=== PATIENT | female | born 1955 | race Caucasian/White ===

== ENCOUNTER 2018-03-01 19:01 | Emergency (ER) | payer OTHER ==
[2018-03-01] MEDS ORDERED: HYDROCODONE/APAP 5/325 MG TAB ONE (20:01)
--- NOTE | 2018-03-01 20:13 | RAD REPORT ---
EXAM DESCRIPTION: RAD - Ankle Left 3 View - 03/01/2018 7:54 pm CLINICAL HISTORY: Ankle pain, twisting injury COMPARISON: None. FINDINGS: Distal tibia is intact. There is an oblique fracture through the distal fibula with no dis traction or angulation deformity. No joint effusion seen. No joint space narrowing. Edema changes see n in the lateral aspect of the leg and ankle. No plantar spur. No foreign body. IMPRESSION: Distal left fibula fracture with no distraction or angulation deformity.
--- NOTE | 2018-03-01 20:15 | RAD REPORT ---
EXAM DESCRIPTION: RAD - Tib Fib Left - 03/01/2018 7:54 pm CLINICAL HISTORY: Leg pain, twisting injury COMPARISON: None. FINDINGS: No tibia fracture is identifiable. No fibula fracture is visible on this examination. The oblique view from the left ankle examination does show the nondisplaced, nonangulated distal fibula f racture. There is no dislocation or periosteal reaction noted. Contusion or edema changes are seen in the soft tissues of the lateral left leg and ankle. Partially imaged knee joint shows no suspicious finding. No foreign body in the soft tissues. IMPRESSION: No acute left tibia or fibula finding identifiable on this study. Separately reported an kle examination does demonstrate distal fibula fracture.
--- NOTE | 2018-03-01 20:20 | EDPHYS ---
Physician Documentation [facility] Name: Patricia Carlisle Age: 62 yrs Sex: Female : 1955 Arrival Date: 03/01/2018 Time: 19:05 Bed 13 Private MD: out of town, doctor ED Physician Jose Guardado HPI: 03/01 19:33 This 62 yrs old Female presents to ER via Wheelchair with complaints of Ankle gurmeet Injury. 19:33 The patient presents with decreased range of motion, an injury, pain, tenderness. The gurmeet complaints affect the left ankle, lateral aspect of left calf, left lateral ankle, left Achilles, left medial ankle and anterior aspect of left ankle. Onset: The symptoms/episode began/occurred just prior to arrival. Context: resulted from a mis-step by the patient, The mechanism of injury involved inversion of the affected ankle. The patient can partially bear weight on the affected extremity. The patient is not able to ambulate. Associated signs and symptoms: Pertinent positives: swelling. Modifying factors: The symptoms are alleviated by elevation of extremity. Severity of symptoms: At their worst the symptoms were mild, moderate, in the emergency department the symptoms are unchanged. The patient has not experienced similar symptoms in the past. Historical: - Allergies: 19:21 No Known Allergies; ak1 - Home Meds: 19:21 Advair Diskus Inhl [Active]; lisinopril 5 mg Oral tab 1 tab once daily [Active]; ak1 - PMHx: 19:21 Asthma; Hypertension; ak1 - Immunization history:: Adult Immunizations unknown. - Social history:: Smoking status: Patient/guardian denies using tobacco. - Ebola Screening: : No symptoms or risks identified at this time. - Family history:: not pertinent. ROS: 19:33 Constitutional: Negative for fever, chills, and weight loss, Eyes: Negative for injury, gurmeet pain, redness, and discharge, ENT: Negative for injury, pain, and discharge, Neck: Negative for injury, pain, and swelling, Cardiovascular: Negative for chest pain, palpitations, and edema, Respiratory: Negative for shortness of breath, cough, wheezing, and pleuritic chest pain, Abdomen/GI: Negative for abdominal pain, nausea, vomiting, diarrhea, and constipation, Back: Negative for injury and pain, : Negative for injury, bleeding, discharge, and swelling, Skin: Negative for injury, rash, and discoloration, Neuro: Negative for headache, weakness, numbness, tingling, and seizure, Psych: Negative for depression, anxiety, suicide ideation, homicidal ideation, and hallucinations, Allergy/Immunology: Negative for hives, rash, and allergies, Endocrine: Negative for neck swelling, polydipsia, polyuria, polyphagia, and marked weight changes. 19:33 MS/extremity: Positive for decreased range of motion, pain, swelling, tenderness, of the lateral aspect of left calf, left lateral ankle and anterior aspect of left ankle. Exam: 19:33 Constitutional: This is a well developed, well nourished patient who is awake, alert, gurmeet and in no acute distress. Head/Face: Normocephalic, atraumatic. Eyes: Pupils equal round and reactive to light, extra-ocular motions intact. Lids and lashes normal. Conjunctiva and sclera are non-icteric and not injected. Cornea within normal limits. Periorbital areas with no swelling, redness, or edema. ENT: Nares patent. No nasal discharge, no septal abnormalities noted. Tympanic membranes are normal and external auditory canals are clear. Oropharynx with no redness, swelling, or masses, exudates, or evidence of obstruction, uvula midline. Mucous membranes moist. Neck: Trachea midline, no thyromegaly or masses palpated, and no cervical lymphadenopathy. Supple, full range of motion without nuchal rigidity, or vertebral point tenderness. No Meningismus. Chest/axilla: Normal chest wall appearance and motion. Nontender with no deformity. No lesions are appreciated. Cardiovascular: Regular rate and rhythm with a normal S1 and S2. No gallops, murmurs, or rubs. Normal PMI, no JVD. No pulse deficits. Respiratory: Lungs have equal breath sounds bilaterally, clear to auscultation and percussion. No rales, rhonchi or wheezes noted. No increased work of breathing, no retractions or nasal flaring. Abdomen/GI: Soft, non-tender, with normal bowel sounds. No distension or tympany. No guarding or rebound. No evidence of tenderness throughout. Back: No spinal tenderness. No costovertebral tenderness. Full range of motion. Skin: Warm, dry with normal turgor. Normal color with no rashes, no lesions, and no evidence of cellulitis. Neuro: Awake and alert, GCS 15, oriented to person, place, time, and situation. Cranial nerves II-XII grossly intact. Motor strength 5/5 in all extremities. Sensory grossly intact. Cerebellar exam normal. Normal gait. Psych: Awake, alert, with orientation to person, place and time. Behavior, mood, and affect are within normal limits. 19:33 Musculoskeletal/extremity: Extremities: noted in the lateral aspect of left calf, left lateral ankle and anterior aspect of left ankle: decreased ROM, pain, ROM: full active range of motion, full passive range of motion, limited active range of motion due to pain, limited passive range of motion due to pain, Circulation is intact in all extremities. Sensation intact. Compartment Syndrome exam of affected extremity: is normal. DVT Exam: no swelling, negative Homans' sign noted on exam, no appreciated bluish discoloration, no erythema, no increased warmth, pain, tenderness. Vital Signs: 19:21 BP 157 / 80; Pulse 93; Resp 16; Temp 97.7(O); Pulse Ox 99% on R/A; Weight 74.84 kg (R); ak1 Height 5 ft. 2 in. (157.48 cm) (R); Pain 5/10; 20:00 BP 133 / 85; Pulse 87; Resp 16; Pulse Ox 97% on R/A; jb4 21:00 BP 133 / 62; Pulse 87; Resp 16; Pulse Ox 98% on R/A; jb4 19:21 Body Mass Index 30.18 (74.84 kg, 157.48 cm) ak1 MDM: 19:16 Patient medically screened. [facility] 19:33 Data reviewed: vital signs, nurses notes, radiologic studies, plain films. [facility] 03/01 19:33 Order name: Tib Fib Left XRAY; Complete Time: 21:20 [facility] 03/01 19:33 Order name: Ankle Left 3 View XRAY; Complete Time: 21:20 [facility] 03/01 19:33 Order name: Ice pack; Complete Time: 19:33 [facility] 03/01 20:18 Order name: Walking boot; Complete Time: 21:01 [facility] 03/01 20:18 Order name: Crutch Training; Complete Time: 21:32 [facility] Administered Medications: 19:57 Drug: [place] 5 mg-325 mg 1 tabs Route: PO; jb4 21:32 Follow up: Response: No adverse reaction; Pain is decreased jb4 21:25 Drug: Zofran 4 mg Route: PO; jb4 21:33 Follow up: Response: No adverse reaction; Nausea is decreased jb4 Disposition: 03/01/18 20:19 Discharged to Home. Impression: Nondisplaced oblique fracture of shaft of left fibula. - Condition is Stable. - Discharge Instructions: Undisplaced Fibular Ankle Fracture Treated With Immobilization, Adult. - Prescriptions for Tylenol- Codeine #3 300-30 mg Oral Tablet - take 2 tablet by ORAL route every 6 hours As needed; 30 tablet. Zofran 4 mg Oral Tablet - take 1 tablet by ORAL route every 12 hours As needed; 14 tablet. - Medication Reconciliation Form, Thank You Letter, Antibiotic Education, Prescription Opioid Use form. - Follow up: Private Physician; When: 2 - 3 days; Reason: Recheck today's complaints, Continuance of care, Re-evaluation by your physician. Follow up: Rupert Dobbs MD; When: 2 - 3 days; Reason: Recheck today's complaints, Re-evaluation by your physician. - Problem is new. - Symptoms have improved. Signatures: Dispatcher [employer] EDJose Salazar MD MD cha Krenek, Amber RN RN ak1 Edilberto Covington RN RN jb4 Corrections: (The following items were deleted from the chart) 21:35 20:19 03/01/2018 20:19 Discharged to Home. Impression: Nondisplaced oblique fracture of jb4 shaft of left fibula. Condition is Stable. Forms are Medication Reconciliation Form, Thank You Letter, Antibiotic Education, Prescription Opioid Use. Follow up: Private Physician; When: 2 - 3 days; Reason: Recheck today's complaints, Continuance of care, Re-evaluation by your physician. Follow up: Rupert Dobbs; When: 2 - 3 days; Reason: Recheck today's complaints, Re-evaluation by your physician. Problem is new. Symptoms have improved. gurmeet
--- NOTE | 2018-03-01 20:20 | ER ---
Nurse's Notes [facility] Name: Patricia Carlisle Age: 62 yrs Sex: Female : 1955 Arrival Date: 03/01/2018 Time: 19:05 Bed 13 Private MD: out of town, doctor Diagnosis: Nondisplaced oblique fracture of shaft of left fibula Presentation: 03/01 19:19 Presenting complaint: Patient states: left ankle pain after missing the bottom step of ak1 the stairs. pt c/o increased pain with ambulation. Transition of care: patient was not received from another setting of care. Onset of symptoms was March 01, 2018. Risk Assessment: Do you want to hurt yourself or someone else? Patient reports no desire to harm self or others. Initial Sepsis Screen: Does the patient meet any 2 criteria? No. Patient's initial sepsis screen is negative. Does the patient have a suspected source of infection? No. Patient's initial sepsis screen is negative. Care prior to arrival: ice applied. 19:19 Method Of Arrival: Wheelchair ak1 19:19 Acuity: NIRMAL 4 ak1 Triage Assessment: 19:21 General: Appears uncomfortable, Behavior is cooperative. ak1 Historical: - Allergies: 19:21 No Known Allergies; ak1 - Home Meds: 19:21 Advair Diskus Inhl [Active]; lisinopril 5 mg Oral tab 1 tab once daily [Active]; ak1 - PMHx: 19:21 Asthma; Hypertension; ak1 - Immunization history:: Adult Immunizations unknown. - Social history:: Smoking status: Patient/guardian denies using tobacco. - Ebola Screening: : No symptoms or risks identified at this time. - Family history:: not pertinent. Screenin:26 Abuse screen: Denies threats or abuse. Nutritional screening: No deficits noted. jb4 Tuberculosis screening: No symptoms or risk factors identified. Fall Risk Gait- Impaired (20 pts.). Total Pina Fall Scale indicates No Risk (0-24 pts). Assessment: 19:23 General: Appears in no apparent distress. uncomfortable, Behavior is calm, cooperative, jb4 appropriate for age. Pain: Complains of pain in left ankle Pain radiates to lateral aspect of left calf Pain currently is 5 out of 10 on a pain scale. Quality of pain is described as It just hurts. Pain began 1 hour ago. Is intermittent. Neuro: Level of Consciousness is awake, alert, obeys commands, Oriented to person, place, time, situation. Cardiovascular: Patient's skin is warm and dry. Respiratory: Airway is patent Respiratory effort is even, unlabored, Respiratory pattern is regular, symmetrical. GI: No signs and/or symptoms were reported involving the gastrointestinal system. : No signs and/or symptoms were reported regarding the genitourinary system. EENT: No signs and/or symptoms were reported regarding the EENT system. Derm: Skin is intact, Skin is pink, warm \T\ dry. Musculoskeletal: Circulation, motion, and sensation intact. Capillary refill < 3 seconds, in left toes. Swelling present in right leg and left leg Pt reports that swelling in the legs is her norm. Reports pain in Left ankle since 30 minutes prior to arrival.. Pain is 5 out of 10 on a pain scale. 20:00 Reassessment: Patient appears in no apparent distress at this time. Patient and/or jb4 family updated on plan of care and expected duration. Pain level reassessed. Patient is alert, oriented x 3, equal unlabored respirations, skin warm/dry/pink. 21:30 Reassessment: Patient appears in no apparent distress at this time. Patient and/or jb4 family updated on plan of care and expected duration. Pain level reassessed. Patient is alert, oriented x 3, equal unlabored respirations, skin warm/dry/pink. Discussed D/c, F/u with pt and pt's . Vital Signs: 19:21 BP 157 / 80; Pulse 93; Resp 16; Temp 97.7(O); Pulse Ox 99% on R/A; Weight 74.84 kg (R); ak1 Height 5 ft. 2 in. (157.48 cm) (R); Pain 5/10; 20:00 BP 133 / 85; Pulse 87; Resp 16; Pulse Ox 97% on R/A; jb4 21:00 BP 133 / 62; Pulse 87; Resp 16; Pulse Ox 98% on R/A; jb4 19:21 Body Mass Index 30.18 (74.84 kg, 157.48 cm) ak1 ED Course: 19:05 Patient arrived in ED. dl4 19:05 out of town, doctor is Private Physician. dl4 19:14 Edilberto Covington, RN is Primary Nurse. jb4 19:16 Jose Guardado MD is Attending Physician. [facility] 19:20 Triage completed. ak1 19:21 Arm band placed on Patient placed in an exam room, on a stretcher, Patient notified of ak1 wait time. 19:26 Patient has correct armband on for positive identification. Bed in low position. Call jb4 light in reach. Side rails up X 1. Pulse ox on. NIBP on. 19:26 Warm blanket given. jb4 19:54 X-ray completed. Portable x-ray completed in exam room. Patient tolerated procedure ls3 well. 19:55 Tib Fib Left XRAY In Process Unspecified. EDMS 19:55 Ankle Left 3 View XRAY In Process Unspecified. EDMS 20:00 Warm blanket given. jb4 20:18 Rupert Dobbs MD is Referral Physician. [facility] 21:34 No provider procedures requiring assistance completed. Patient did not have IV access jb4 during this emergency room visit. Administered Medications: 19:57 Drug: [place] 5 mg-325 mg 1 tabs Route: PO; jb4 21:32 Follow up: Response: No adverse reaction; Pain is decreased jb4 21:25 Drug: Zofran 4 mg Route: PO; jb4 21:33 Follow up: Response: No adverse reaction; Nausea is decreased jb4 Outcome: 20:19 Discharge ordered by . [facility] 21:34 Discharged to home via wheelchair, with crutches. jb4 21:34 Condition: stable 21:34 Discharge instructions given to patient, significant other, Instructed on discharge instructions, follow up and referral plans. medication usage, Demonstrated understanding of instructions, follow-up care, medications, Prescriptions given X 2. 21:35 Patient left the ED. jb4 Signatures: Dispatcher [employer] EDJose Salazar MD MD cha Krenek, Amber RN RN ak1 Edilberto Covington, JULIAN RN jb4 Omid Alvarez ls3 Shelton Cruz dl4
[2018-03-01] MEDS ORDERED: ONDANSETRON 4 MG (ODT) TAB ONE (21:27)
== END 2018-03-01 21:35 | disposition home or self-care (01) ==
LOC: ER 19:01
DX: S82.435A Nondisplaced oblique fracture of shaft of left fibula, initial encounter for closed fracture (principal); X50.1XXA Overexertion from prolonged static or awkward postures, initial encounter; J45.909 Unspecified asthma, uncomplicated; I10 Essential (primary) hypertension; Y93.89 Activity, other specified; Y92.009 Unspecified place in unspecified non-institutional (private) residence as the place of occurrence of the external cause
CPT/HCPCS: 99284